=== PATIENT | male | born 1965 | race Caucasian/White ===

== ENCOUNTER 2020-03-18 12:01 | Day surgery (SDC) | payer MEDICAID ==
[~2020-03-18] VITALS: Ht 170.2 cm; Wt 62.5 kg
[2020-03-18] MEDS ORDERED: SODIUM CHLORIDE 0.9% 1,000 ML IV ONE (12:30)
[2020-03-18 12:34] VITALS: BP 146/95
[2020-03-18] MEDS ORDERED: LISI5TAB7 PO (12:48)
[2020-03-18] MEDS ORDERED: METO25TA4 PO (12:48)
[2020-03-18] MEDS ORDERED: HYDR-826 PO (12:48)
[2020-03-18] MEDS ORDERED: CLOP75TA PO (12:48)
[2020-03-18] MEDS ORDERED: GABA600T7 PO (12:48)
[2020-03-18] MEDS ORDERED: ATOR40TA PO (12:48)
[2020-03-18] MEDS ORDERED: LORA-445 PO (12:48)
[2020-03-18] MEDS ORDERED: ASPI81TA45 PO (12:48)
[2020-03-18 12:58] LABS: BASOPHILS % (AUTO) 1 % (0-1); EOSINOPHILS % (AUTO) 2 % (1-7); LYMPHOCYTES % (AUTO) 29 % (22-44); MEAN CORPUSCULAR HEMOGLOBIN 33.2 pg (27.5-34.5); MEAN CORPUSCULAR HGB CONC 34.4 g/dL (33.2-36.2); MEAN PLATELET VOLUME 6.8 fL (7.4-10.4); MONOCYTES % (AUTO) 10 % (2-9); NEUTROPHILS % (AUTO) 58 % (42-75); PLATELET COUNT 293 x10^3/uL (130-400); RED BLOOD COUNT 4.68 x10^6/uL (4.38-5.82)
[2020-03-18 12:59] LABS: MD NO
[2020-03-18 13:07] LABS: ANION GAP 4 mmol/L (5-15); CALCIUM 8.8 mg/dL (8.5-10.1); CHLORIDE 111 mmol/L (98-107)
[2020-03-18 13:10] LABS: CREATININE 0.88 mg/dL (0.7-1.3)
[2020-03-18] MEDS ORDERED: MIDAZOLAM 1 MG/ML, 2ML ONE (13:58)
[2020-03-18] MEDS ORDERED: FENTANYL PF 250 MCG/5ML ONE (13:58)
[2020-03-18] MEDS ORDERED: ONDANSETRON 2MG/ML, 2ML ONE (13:59)
[2020-03-18] MEDS ORDERED: ROCURONIUM 10MG/ML,5ML ONE (13:59)
[2020-03-18] MEDS ORDERED: PROPOFOL 10 MG/ML, 20ML ONE (13:59)
[2020-03-18] MEDS ORDERED: SUCCINYLCHOLINE 20 MG/ML, 10ML ONE (13:59)
[2020-03-18] MEDS ORDERED: DEXAMETHASONE 4 MG/ML, 5ML ONE (13:59)
[2020-03-18] MEDS ORDERED: HEPARIN 1,000 UNITS/ML, 10ML ONE (14:00)
[2020-03-18] MEDS ORDERED: VANCOMYCIN 500 MG ONE (14:20)
[2020-03-18] MEDS ORDERED: LIDOCAINE 1%, 20ML ONE (14:26)
[2020-03-18] MEDS ORDERED: SODIUM CHLORIDE 0.9% 1,000 ML IV SCH (16:00)
[2020-03-18] MEDS ORDERED: ONDANSETRON 2MG/ML, 2ML IVPush PRN (16:00)
[2020-03-18] MEDS ORDERED: ACETAMINOPHEN 650 MG/20.3 ML UDC PO PRN (16:00)
== END 2020-03-18 18:22 | disposition home or self-care (01) ==
LOC: CACL 12:01
PROVIDERS: ATTEND Internal Medicine Cardiovascular Disease
DX: Q21.1 Atrial septal defect (principal); I25.10 Atherosclerotic heart disease of native coronary artery without angina pectoris; I10 Essential (primary) hypertension; E78.5 Hyperlipidemia, unspecified; I34.0 Nonrheumatic mitral (valve) insufficiency; F17.210 Nicotine dependence, cigarettes, uncomplicated; Z79.899 Other long term (current) drug therapy; Z88.0 Allergy status to penicillin; Z79.01 Long term (current) use of anticoagulants; Z79.82 Long term (current) use of aspirin; Z20.828 Contact with and (suspected) exposure to other viral communicable diseases
CPT/HCPCS: 36415; 80048; 85025; 85347; 93005; 93308; 93312; 93321; 93325; 93580; C1760; C1766; C1769; C1887; C1894; J0330; J1100; J1644; J2250; J2405; J2704; J3010; J3370; U0003; 93582

== ENCOUNTER → 2020-04-20 | Outpatient (CLI) | payer MEDICAID ==
[~2020-04-20] MED LIST: ASPI81TA45 PO; ATOR40TA PO; CLOP75TA PO; GABA600T7 PO; HYDR-826 PO; LISI5TAB7 PO; LORA-445 PO; METO25TA4 PO
== END | disposition home or self-care (01) ==
LOC: CVU 13:04
PROVIDERS: ATTEND Internal Medicine Cardiovascular Disease
DX: Z01.810 Encounter for preprocedural cardiovascular examination (principal); I08.1 Rheumatic disorders of both mitral and tricuspid valves; R06.02 Shortness of breath; I65.29 Occlusion and stenosis of unspecified carotid artery; Q21.1 Atrial septal defect
CPT/HCPCS: 93306